=== PATIENT | female | born 1995 | race Caucasian/White ===

== ENCOUNTER 2019-10-11 10:58 | Emergency (ER) | payer OTHER ==
[~2019-10-11] VITALS: Ht 167.6 cm; Wt 81.2 kg
[2019-10-11 10:59] VITALS: BP 133/90
[2019-10-11] MEDS ORDERED: LAMICTAL 25 MG25 MG PO (11:14)
[2019-10-11] MEDS ORDERED: WELLBUTRIN XL300 MG PO (11:14)
[2019-10-11] MEDS ORDERED: LEVO-T100 MCG PO (11:15)
[2019-10-11] MEDS ORDERED: ALPRAZOLAM 0.50.5 M1 PO (11:15)
[2019-10-11 14:35] LABS: BASOPHILS 0.8 % (0.0-2.0); HEMATOCRIT 40.4 % (37.0-47.0); HEMOGLOBIN 13.6 gm/dL (12.0-15.0); MCH 31.2 pg (26.0-34.0); MCHC 33.7 g/dL (28.0-37.0); MCV 92.5 fL (80.0-100.0); MONOCYTES 5.6 % (1.0-8.0); PLATELET COUNT 315 thou/uL (150-400); POLYS 52.6 % (36.0-66.0); RBC 4.37 mil/uL (4.20-5.00); RDW 12.4 % (10.5-14.5); WBC 7.5 thou/uL (4.0-11.0)
[2019-10-11 14:36] LABS: CALCIUM 9.3 mg/dL (8.5-10.1); CREATININE 0.8 mg/dL (0.6-1.0)
[2019-10-11 14:54] LABS: AMP/METHAMP Negative (Negative); BARBITURATES Negative (Negative); BENZODIAZEPINES POSITIVE (Negative); COCAINE Negative (Negative); METHADONE Negative (Negative); OPIATES Negative (Negative); PCP Negative (Negative)
[2019-10-11 17:47] VITALS: BP 131/74
[2019-10-11 18:28] VITALS: BP 114/61
[2019-10-11] MEDS ORDERED: PERCOCET 5-3251 EACH PO (19:31)
[2019-10-11] MEDS ORDERED: PHENERGAN 25 MG25 M1 PO (19:32)
[2019-10-11] MEDS ORDERED: ZOFRAN ODT4 MG PO (19:32)
--- NOTE | 2019-10-11 20:38 | NUR ---
PT STATED THAT AFTER TAKING A PERCOCET HER PAIN WAS A 6/10 AND THAT SHE FELT IF SHE COULD HAVE SOMETHING FOR NAUSEA SHE WOULD BE OK TO GO HOME. PT WAS TOLD OF THE RISK THAT SHE WOULD NOT BE ABLE TO RELIEVE HER PAIN AND NAUSEA AT HOME AND THAT IS WHY IT WAS RECCOMMNED SHE BE ADMITTED TO THE HOSPITAL. pT STATED SHE WAS AWARE OF THIS AND THAT IF IT BECASE WORSE SHE WOULD JUST COME BACK. HER DESIRE NOT TO BE ADMITTED HAD TO DO WITH FINANCIAL RESOURCES AVAILABLE TO HER.
[2019-10-11 20:41] VITALS: BP 136/74
[2019-10-15] MEDS ORDERED: PERCOCET 5-3251 EACH PO (20:48)
[2019-10-15] MEDS ORDERED: PHENERGAN 25 MG25 M1 PO (20:58)
[2019-10-15] MEDS ORDERED: PROMS25 WY RECTAL (20:58)
[2019-10-15] MEDS ORDERED: BUTALB-APAP-CA1 EACH PO (20:58)
[2019-10-19] MEDS ORDERED: PHENERGAN 25 MG25 M1 PO (15:07)
[2019-10-19] MEDS ORDERED: BACLOFEN 10MG T10 MG PO (15:09)
[2019-10-19] MEDS ORDERED: BUTALB-APAP-CA1 EACH PO (15:09)
[2019-10-19] MEDS ORDERED: PERCOCET 5-3251 EACH PO (15:11)
== END 2019-10-11 20:42 | disposition home or self-care (01) ==
LOC: ER 10:58 → EROBS 17:23
PROVIDERS: Nurse Practitioner Family
DX: F07.81 Postconcussional syndrome (principal); R51 Headache; Z90.711 Acquired absence of uterus with remaining cervical stump; Z90.89 Acquired absence of other organs; Z90.49 Acquired absence of other specified parts of digestive tract; Z88.0 Allergy status to penicillin; Z88.8 Allergy status to other drugs, medicaments and biological substances

== ENCOUNTER 2019-10-15 16:17 | Emergency (ER) | payer OTHER ==
[~2019-10-15] VITALS: Ht 167.6 cm; Wt 86.2 kg
[~2019-10-15 16:17] MED LIST: ALPRAZOLAM 0.50.5 M1 PO; LAMICTAL 25 MG25 MG PO; LEVO-T100 MCG PO; PERCOCET 5-3251 EACH PO; PHENERGAN 25 MG25 M1 PO; WELLBUTRIN XL300 MG PO; ZOFRAN ODT4 MG PO
[2019-10-15 17:21] LABS: URINE BILIRUBIN NEGATIVE (Negative); URINE BLOOD NEGATIVE (Negative); URINE COLOR YELLOW; URINE GLUCOSE-RANDOM* NEGATIVE (Negative); URINE KETONES NEGATIVE (Negative); URINE LEUKOCYTES-REFLEX TRACE (Negative); URINE NITRITE-REFLEX NEGATIVE (Negative); URINE PROTEIN (DIPSTICK) NEGATIVE (Negative); URINE UROBILINOGEN 0.2 E.U./dl (0.2-1.0)
[2019-10-15 17:23] LABS: URINE CLARITY HAZY
[2019-10-15 18:02] LABS: ABSOLUTE NEUTROPHILS 7.6 thou/uL (1.4-8.2); BASOPHILS 0.3 % (0.0-2.0); EOSINOPHILS 1.9 % (0.0-3.0); HEMATOCRIT 41.8 % (37.0-47.0); HEMOGLOBIN 14.3 gm/dL (12.0-15.0); LYMPHOCYTES 26.8 % (24.0-44.0); MCH 31.3 pg (26.0-34.0); MCHC 34.3 g/dL (28.0-37.0); MCV 91.1 fL (80.0-100.0); MONOCYTES 5.7 % (1.0-8.0); PLATELET COUNT 359 thou/uL (150-400); POLYS 65.3 % (36.0-66.0); RBC 4.59 mil/uL (4.20-5.00); RDW 12.1 % (10.5-14.5); WBC 11.7 thou/uL (4.0-11.0)
[2019-10-15 18:08] LABS: CALCIUM 9.7 mg/dL (8.5-10.1); CREATININE 0.7 mg/dL (0.6-1.0); POTASSIUM 3.5 mmol/L (3.5-5.1)
[2019-10-15 18:13] LABS: ALBUMIN 4.3 g/dL (3.4-5.0); TOTAL BILIRUBIN 0.6 mg/dL (<0.1-1.0); TOTAL PROTEIN 7.9 g/dL (6.4-8.2)
[2019-10-15] MEDS ORDERED: PERCOCET 5-3251 EACH PO ×2 (20:48)
[2019-10-15] MEDS ORDERED: PHENERGAN 25 MG25 M1 PO ×2 (20:58)
[2019-10-15] MEDS ORDERED: PROMS25 WY RECTAL ×2 (20:58)
[2019-10-15] MEDS ORDERED: BUTALB-APAP-CA1 EACH PO ×2 (20:58)
[2019-10-15 21:00] VITALS: BP 127/75
== END 2019-10-15 21:08 | disposition home or self-care (01) ==
LOC: ER 16:17
PROVIDERS: Physician Assistant
DX: S06.0X0A Concussion without loss of consciousness, initial encounter (principal); R11.2 Nausea with vomiting, unspecified; Z90.49 Acquired absence of other specified parts of digestive tract; Z90.711 Acquired absence of uterus with remaining cervical stump; Z88.0 Allergy status to penicillin; Z88.8 Allergy status to other drugs, medicaments and biological substances; W22.09XA Striking against other stationary object, initial encounter; Y93.89 Activity, other specified; Y92.89 Other specified places as the place of occurrence of the external cause; Y99.8 Other external cause status

== ENCOUNTER 2019-10-17 12:53 | Inpatient (IN) | payer OTHER ==
[~2019-10-17] VITALS: Ht 167.6 cm; Wt 88.5 kg
[2019-10-17 12:53] VITALS: BP 141/86
[~2019-10-17 12:53] MED LIST changes: +BUTALB-APAP-CA1 EACH PO; +PROMS25 WY RECTAL
[2019-10-17 16:26] LABS: URINE BILIRUBIN NEGATIVE (Negative); URINE BLOOD NEGATIVE (Negative); URINE CLARITY SL CLOUDY; URINE COLOR YELLOW; URINE GLUCOSE-RANDOM* NEGATIVE (Negative); URINE KETONES NEGATIVE (Negative); URINE LEUKOCYTES-REFLEX TRACE (Negative); URINE NITRITE-REFLEX NEGATIVE (Negative); URINE PROTEIN (DIPSTICK) NEGATIVE (Negative); URINE SPECIFIC GRAVITY <= 1.005 (1.005-1.035); URINE UROBILINOGEN 0.2 E.U./dl (0.2-1.0)
[2019-10-17 18:15] LABS: ABSOLUTE NEUTROPHILS 5.6 thou/uL (1.4-8.2); BASOPHILS 0.4 % (0.0-2.0); EOSINOPHILS 3.7 % (0.0-3.0); HEMATOCRIT 41.6 % (37.0-47.0); HEMOGLOBIN 14.5 gm/dL (12.0-15.0); LYMPHOCYTES 33.8 % (24.0-44.0); MCH 31.9 pg (26.0-34.0); MCHC 34.8 g/dL (28.0-37.0); MCV 91.8 fL (80.0-100.0); MONOCYTES 5.7 % (1.0-8.0); PLATELET COUNT 344 thou/uL (150-400); POLYS 56.4 % (36.0-66.0); RBC 4.53 mil/uL (4.20-5.00); RDW 12.3 % (10.5-14.5); WBC 9.9 thou/uL (4.0-11.0)
[2019-10-17 18:21] LABS: CALCIUM 9.4 mg/dL (8.5-10.1); CREATININE 0.7 mg/dL (0.6-1.0)
[2019-10-17 19:47] VITALS: BP 133/80
[2019-10-17 20:35] VITALS: BP 107/67
[2019-10-17 20:45] VITALS: BP 122/67
[2019-10-17 20:52] LABS: AMP/METHAMP Negative (Negative); BARBITURATES POSITIVE (Negative); BENZODIAZEPINES POSITIVE (Negative); COCAINE Negative (Negative); METHADONE Negative (Negative); OPIATES Negative (Negative); PCP Negative (Negative)
[2019-10-18 03:42] VITALS: BP 107/56
--- NOTE | 2019-10-18 04:53 | NUR ---
PT CAME FROM THE ER ON 10/17/19 APPROX 2039. PT IS ALERT AND ORIENTED BUT STATES THAT SINCE BEING HIT IN THE HEAD BY THE VASE THAT SHE HAS MOMENTS OF CONFUSION. PT HAS COMPLAINTS OF HER HEAD HURTING AND HER KNECK MUSCLES BECOMING TIGHT. PT ALSO COMPLAINS OF NAUSEA. PT IS A FALL HIGH RISK. BED IN LOW POSITION, BED ALARM ON AND CALL LIGHT IN REACH. PT CALLS MULTIPLE TIME TO ASK WHAT THE PLAN IS. I READ OVER THE NOTES AND EXPLAINED TO HER WHAT WAS GOING ON SINCE COMING FROM THE ER. I CALLED THE ENGINE RESEARCH ENGINEER BECAUSE THE PT WAS REQUESTING BENADRYL, A DIFFERENT PAIN MEDICATION AND A MUSCLE RELAXER. THE ICE BAG HAS BEEN REFILLED. PT PERFERS THE ROOM TO BE DARK. THE PT HAS COMPLAINTS OF WANTING TO GET SOME SLEEP AND NOT WANTING TO BE BOTHERED FOR VITALS OR MEDS UNLESS SHE CALLS OUT. THE BENADRYL AND THE BUTALBITAL WERE ADMINISTERED AND THE PT STATES THAT THIS DID NOTHING FOR HER BUT MADE HER "JUMPY". IV MUSCLE RELAXER WAS ADMINISTERED AND THE PT GOT A COUPLE HOURS OF SLEEP. THE PT RESTED UNTIL 0500 AND CALLED OUT FOR PAIN MEDICATION. TORADOL WAS ADMINISTERED, PT IS ALSO REQUESTING PHENERGAN. WILL CONITNUE TO MONITOR.
[2019-10-18 07:32] VITALS: BP 127/59
--- NOTE | 2019-10-18 07:51 | NUR ---
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
--- NOTE | 2019-10-18 08:56 | NUR ---
FAXED REFERRAL TO [facility] SPOKE WITH GENE IN ADM SHE RECEIVED AND WILL REVIEW. FAXED REFERRAL TO [facility] SPOKE WITH OLIVE IN ADM SHE RECEIVED AND WILL REVIEW. DP TO FOLLOW.
--- NOTE | 2019-10-18 14:14 | NUR ---
Chart reveiwed and case discussed with the care team. Pt was indep prior to admission and lives with her spouse and children. The pt has had a couple of ER visits r/t concussion and has been admitted with LEWIS and nausea. The pt has health insurance through her spouse's employer and has been following up with her PCP. The pt does have a spinal stimulator and is not able to have an MRI. Possible CT angiogram per neuro. No cm interventions identified at this time. Will remain available should dc planning needs arise.
[2019-10-18 14:50] VITALS: BP 127/59
[2019-10-18 15:32] VITALS: BP 127/66
--- NOTE | 2019-10-18 17:08 | EKG ---
[address] [address] ELECTROCARDIOGRAM REPORT Name: JANETTEADRIA Room #: 434-P ADM IN M.R.#: [id number] Admission: 10/17/19 Attend Phys: Verna Michel MD Discharge: Date of : 89 Report #: [id number] THIS REPORT FOR: //name// [facility] Test Date: 2019-10-18 Test Time: 09:20:03 Pat Name: ADRIA SAVAGE Department: Room: 434 P Gender: F Community Relations Rep: FREDRICK : 1995 Requested By: Verna Michel Order Number: [id number] MD: Italo Mc Measurements Intervals Minto Rate: 82 P: 66 ND: 176 QRS: 61 QRSD: 85 T: 44 QT: 359 QTc: 420 Interpretive Statements Sinus rhythm Normal tracing No previous ECG available for comparison Electronically Signed On 10-18-2019 17:08:16 ULTRA SOUND TECHNICIAN by Italo Mc [email or web address] <ELECTRONICALLY SIGNED> By: Italo Mc MD, [facility] 10/18/19 1708 09 9 Italo Mc MD, FACC /EPI
--- NOTE | 2019-10-18 18:43 | NUR ---
PT. A&Ox4. CALL LIGHT IN REACH. PT CARE ASSUMED 0700. WHWN ARRIVED PT. HAD UNCONTROLLED PAIN IN THE NECK WITH NAUSEA AND VOMITTING WITH DIZZY AND BLURRY VISION. PAIN MEDICATION WAS CHANGED AND AND PAIN IS SUCCESFULLY UNDER CONTROLL. PT HAD A CAT SCAN TODAY WITH NORMAL RESULTS. PT HAD A MILD ANXIETY ATTACK BUT HAS XANAX ON BOARD. PT IS MORE CONTENT WITH HER SITUATION AND MORE CALM.
[2019-10-18 19:00] VITALS: BP 127/66
[2019-10-18 19:16] VITALS: BP 135/64
--- NOTE | 2019-10-19 05:05 | NUR ---
Pt is A/OX4,VSS. C/o nausea/pain medicated with Morphine nausea meds per request with relief reported. Pt requested for sleep aid at HS,orders obtained from [facility] for Benadryl HS 50mg administered with relief reported. IVF infusing without problems voiced. C/o blurred vision and prefers deemed lights. Calls approp. Resting quietly with call light/personal items,spouse at the bedside for the night.
[2019-10-19 08:44] VITALS: BP 105/53
[2019-10-19 11:02] VITALS: BP 105/53
--- NOTE | 2019-10-19 12:46 | NUR ---
PT. CARE ASSUMED 0700. A&Ox4. IV IN PLACE WITH FLUIDS RUNNING. PT IS FEELING MUCH BETTER TODAY AND IF TOLERATING WITH PAIN RELIEF CAN DISCHARGE TODAY. ROOM IS KEPT DARK AND QUIET FOR PHOTOPHOBIA SYMPTOM REDUCTION. PAIN AND NAUSEA MEDICATION EDUCATION GIVEN WITH DISCUSSION AND FEEDBACK. IN ROOM WITH PATIENT. PT. TOLERATED BREAKFAST AND LUNCH WELL. GOAL FOR TODAY IS TO GET UP AND MOVE AROUND MORE AND POSSIBLY HAVE MORE LIGHT IN THE ROOM. PT. REFUSED FALL RISK PROTOCOLL.
[2019-10-19] MEDS ORDERED: PHENERGAN 25 MG25 M1 PO ×2 (15:07)
[2019-10-19] MEDS ORDERED: BUTALB-APAP-CA1 EACH PO ×2 (15:09)
[2019-10-19] MEDS ORDERED: BACLOFEN 10MG T10 MG PO ×2 (15:09)
[2019-10-19] MEDS ORDERED: PERCOCET 5-3251 EACH PO ×2 (15:11)
[2019-10-19 15:32] VITALS: BP 127/59
--- NOTE | 2019-10-28 13:29 | HC ---
[facility] [place] [address] CONSULTATION Name: JANETTEADRIA Sheron Room #: 434-P [facility] IN ..#: [id number] Admission: 10/17/19 Attend Phys: Verna Michel MD Discharge: 10/19/19 Date of : 89 Report #: [id number] THIS REPORT FOR: //name// CC: FAM unknown Verna Michel DATE OF SERVICE: 10/18/2019 HISTORY OF PRESENT ILLNESS: This is a 24-year-old female patient who was seen by me today. The patient and the family is not happy for multiple things. They are not happy because they indicated the IV was started late and they let the pain go too far. They are also not happy because the symptoms have not been controlled yet. I had a long talk with the patient and the family. I discussed the role of the neurologist. I discussed with them that my aim is to see if anything which needs intervention is going on from neurological perspective and what testing to run. I clearly told them that I do not know any pain management and I did discuss with them that no pain management physician comes here and no family intervention specialist comes here and their options in that regard. The patient's history is pretty much summarized in admission history and physical examination and couple of visits she had to the Emergency Room. Presently, she is complaining of headaches. Headache is behind the eyes. Then it spreads to the whole head. She is photophobic. She has significant nausea and vomiting. She did have a noncontrast CT of the head, which was unremarkable. She had a stimulator in her back, which is not MRI compatible and she indicated she cannot have the MRI. She has been managed by Emergency Room physician as well as by her family doctor in [place] and they have both managed her nausea and vomiting as well as headache. REVIEW OF SYSTEMS: Indicates she had migraine during her , but did not have migraine before that. She had an episode of confusion. She has a history of depression as well as what she indicated later on anxiety. She indicated to me that she takes Wellbutrin as well as Lamictal at home. She has trouble with back for which she has stimulator put in. She also indicates that she had hysterectomy. Her uterus was removed, but her ovaries were left and she does not take any hormones. She is complaining of facial pains on both sides. She has noticed some symptoms in the neck area. She says it hurts when she moves her neck. This was a relevant 14-point review of system. PAST MEDICAL HISTORY: Positive for migraine, but only during , but she has trouble with back for a long time. FAMILY HISTORY: Unremarkable. SOCIAL HISTORY: Also unremarkable. [facility] [address] [place] [address] CONSULTATION Name: JANETTEADRIA E Room #: 434-P DIS IN M.R.#: [id number] Admission: 10/17/19 Attend Phys: Verna Michel MD Discharge: 10/19/19 Date of : 89 Report #: [id number] PHYSICAL EXAMINATION: NEUROLOGIC: Indicates she is alert, responsive. She is keeping the room dark. I did not turn the light on because it bothers her quite a bit, but the best I can tell, she is alert, she is oriented, she can follow simple commands. On cranial nerve examination, it was mostly unremarkable and I did not see any nystagmus or facial weakness. 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 There is really no meningeal sign in this patient. CARDIAC: Examinations appear unremarkable. RESPIRATORY: No respiratory difficulty or rhonchi was noticed. VITAL SIGNS: Blood pressure is running about 127/59, respiration is 17, pulse is 78, temperature is 98.4. LABORATORY DATA: Indicates a white count of 9.9. She did have a CT scan on and that look unremarkable. IMPRESSION: This patient has pretty unusual presentation with multiple symptoms on the face, neck, behind the eye after a head injury. Her workup is difficult because we cannot do the MRI. The other option will be to do a CT angiogram of the head and neck and that will give us good pictures of CT spine as well as rule out some outside chance of dissection, which may have occurred because of trauma. I discussed the procedure, I discussed its potential complication and I discussed the alternative with the patient. I discussed the side effect of the dye. Her GFR was 101 yesterday and she said she had hysterectomy, but I still discussed all the side effects of the dye with the patient. I have called Dr. Marie and discussed the situation with him. I will get an EEG done because of the patient's confusion. I think we will go ahead and do CT angio with and without contrast to exclude any other pathology. The patient wants to proceed with that. <ELECTRONICALLY SIGNED> By: Adan Schuler MD 10/28/19 1329 1135 1351 Adan Schuler MD /nt
--- NOTE | 2019-10-28 13:30 | EEG ---
[facility] [place] [address] ELECTROENCEPHALOGRAM Name: ADRIA SAVAGE Room #: 434-P [facility] IN M.R.#: [id number] Admission: 10/17/19 Attend Phys: Verna Michel MD Discharge: 10/19/19 Date of : 89 Report #: [id number] THIS REPORT FOR: //name// CC: FAM unknown Verna Michel DATE OF SERVICE: 10/18/2019 INDICATION AND FINDINGS: This patient had a head injury and she is having some episodes of confusion. This patient's EEG was done by placing the electrode by standard 10-20 system of electrode placement. Both referential and sequential montages were used for recording. Background activity in this patient's EEG appeared to be about 11 Hz and 30 microvolt. The patient went to sleep and that was associated with bilateral slowing and vertex sharp waves. Photic stimulation was unremarkable. Throughout the record, no active epileptiform activity was noticed. IMPRESSION: This patient's EEG is within normal limits. Thank you very much for this referral. <ELECTRONICALLY SIGNED> By: Adan Schuler MD 10/28/19 1330 1721 1804 Adan Schuler MD /nt
--- NOTE | 2019-11-04 03:23 | H ---
[facility] [place] [address] HISTORY AND PHYSICAL Name: ADRIA SAVAGE Room #: 434-P [facility] IN M.R.#: [id number] Admission: 10/17/19 Attend Phys: Verna Michel MD Discharge: 10/19/19 Date of : 89 Report #: [id number] THIS REPORT FOR: //name// CC: FAM unknown Verna Michel DATE OF SERVICE: 10/17/2019 CHIEF COMPLAINT: 1. Headache. 2. Nausea and vomiting. 3. Intermittent confusion. HISTORY OF PRESENT ILLNESS: The patient is a very pleasant 24-year-old female with a history of chronic back pain secondary to spondylolisthesis and informs me that on last Thursday, she had a heavy glass vase set on the back of her head and the pain was radiating from the back of the head to the neck and to the front of the face as well as to the forehead and her headache continuously got worse. The vase was on the top of a china closet and it fell on her. The patient informs me that she started having nausea and vomiting on and then day after that she started having light sensitivity and was not able to open her eyes as her headache will get worse and nausea will be triggered. Thursday morning, she woke up and she was confused and she thought it was Thursday and it was time to go for mandaen and that concerned her and that prompted the second visit to the Emergency Room. The patient and her had been to the Emergency Room 3 times in last 1 week since the trauma and then today, the headache was intractable and therefore she decided to come back to the hospital. The patient denies any fever, shaking, chills, or night sweats. She denies any hematemesis or abdominal pain or hematochezia or melena. She informs me that her appetite has been low and anything to eat or drink, she triggers nausea and she has not been able to keep anything down. The patient informs me that she started having some dizziness and lightheadedness as well. She denies any syncopal episodes or fall or any confusion other than on Thursday morning when she woke up confused. PAST MEDICAL HISTORY: Significant for spondylolisthesis causing chronic back pain. PAST SURGICAL HISTORY: Significant for cholecystectomy. PERSONAL AND SOCIAL HISTORY: The patient denies any tobacco use or any alcohol or recreational drug use. She is a [id number] mom and her is the emergency contact as well as durable power of disability attorney for health in case she cannot make a decision. FAMILY HISTORY: Mother has diabetes and father is healthy. [address] [address] HISTORY AND PHYSICAL Name: JANETTEADRIA Sheron Room #: 434-P [facility] IN M.R.#: [id number] Admission: 10/17/19 Attend Phys: Verna Michel MD Discharge: 10/19/19 Date of : [birth year] Report #: [id number] ALLERGIES: THE PATIENT IS ALLERGIC TO PENICILLIN, WHICH CAUSES RASH WELL COMPAZINE, WHICH CAUSES RASH. PRIMARY CARE PHYSICIAN: Dr. Harriet Pa and her primary pharmacy is [facility] on [address] [address]. REVIEW OF SYSTEMS: Ten point review of system was done. The patient denies any weakness or numbness of any part of the body. Denies any syncopal episodes. Denies any cough, sputum production or chest pain. Denies any palpitations or exertional dyspnea and denies any dysuria, hematuria, frequency, or urgency of urination. PHYSICAL EXAMINATION: VITAL SIGNS: Temperature 36.7, heart rate 107 when the patient presented, at the time of examination, 103 heart rate per minute. GENERAL: Alert and oriented to time, place and person, very pleasant female, who is complaining of 10/10 severe headache and nausea. Last emesis was a few hours ago and the patient informs me that she is also experiencing photophobia and having dark in the room house. HEENT: Normocephalic, atraumatic. Pupils equally round, reactive to light. Conjunctivae clear. Sclerae nonicteric. Extraocular muscle movement intact. Oropharynx is clear. Mucous membranes moist. NECK: Supple, no JVD, no lymphadenopathy. HEART: S1, S2, regular. Mild tachycardia noted. LUNGS: Clear to auscultation bilaterally without any crackles or wheezes. ABDOMEN: Soft, nontender, nondistended, normal active bowel sounds. EXTREMITIES: Without any edema both lower extremities. NEUROLOGIC: Cranial nerves 2-12 intact. SKIN: Without any rash or breakdown. LABORATORY DATA AND X-RAYS: Sodium 138, potassium 4.0, chloride 104, bicarbonate 23, BUN 7, creatinine 0.7, estimated GFR 101, glucose 80, calcium 9.4. LFTs are pending. WBC 9.9, hemoglobin 14.5, hematocrit 41.6 and platelet count 344. Differential is within normal limits. The patient has had CT scan of the head done and since the injury and that was negative on prior visits. ASSESSMENT AND PLAN: 1. Intractable headache with intermittent confusion. 2. Recurrent nausea and vomiting. 3. Chronic back pain. 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 5. The patient is full code. PLAN: 1. We will go ahead and admit the patient to the Neurology consult. [address] [place] [address] HISTORY AND PHYSICAL Name: ADRIA SAVAGE Sheron Room #: 434-P [facility] IN M.R.#: [id number] Admission: 10/17/19 Attend Phys: Verna Michel MD Discharge: 10/19/19 Date of : 89 Report #: [id number] 2. Neurovascular, neurological check with vital signs. 3. We will use Phenergan suppositories. The patient informs me that Fioricet and IV morphine helps the most and we will go ahead and get a KUB to make sure the patient does not have constipation as with chronic narcotic use the patient could have. For deep venous thrombosis prophylaxis, we will use pneumatic compression devices and for GI prophylaxis, we will use Pepcid. <ELECTRONICALLY SIGNED> By: Verna Michel MD 11/04/19 0323 2326 0008 Verna Michel MD /nt
== END 2019-10-19 16:47 | disposition home or self-care (01) | DRG 103 ==
LOC: ER 12:53 → 4S 18:53 → EROBS 18:53 → 4S 20:30
PROVIDERS: Physician Assistant; ADMIT Internal Medicine
DX: G44.301 Post-traumatic headache, unspecified, intractable (principal); R11.2 Nausea with vomiting, unspecified; M43.10 Spondylolisthesis, site unspecified; F32.9 Major depressive disorder, single episode, unspecified; F41.9 Anxiety disorder, unspecified; G89.29 Other chronic pain; M54.9 Dorsalgia, unspecified; J34.1 Cyst and mucocele of nose and nasal sinus; F07.81 Postconcussional syndrome; R41.0 Disorientation, unspecified; Z91.81 History of falling; Z79.891 Long term (current) use of opiate analgesic; Z90.711 Acquired absence of uterus with remaining cervical stump; Z88.0 Allergy status to penicillin; Z88.8 Allergy status to other drugs, medicaments and biological substances; Z90.49 Acquired absence of other specified parts of digestive tract; Z79.899 Other long term (current) drug therapy; Z83.3 Family history of diabetes mellitus; Z82.49 Family history of ischemic heart disease and other diseases of the circulatory system
CPT/HCPCS: 10195